=== PATIENT | female | born 1955 | race Caucasian/White ===

== ENCOUNTER 2016-11-22 16:08 | Inpatient (IN) | payer BC ==
[~2016-11-22] VITALS: Ht 170.2 cm; Wt 77.0 kg
[2016-11-22] MEDS ORDERED: SODIUM CHLORIDE 0.9% 1,000ML IVBOLUS ONE (17:00)
[2016-11-22] MEDS ORDERED: METOCLOPRAMIDE 5 MG/ML, 2ML IVPush ONE (17:00)
[2016-11-22] MEDS ORDERED: DIPHENHYDRAMINE 50 MG/ML, 1ML IVPush ONE (17:00)
[2016-11-22] MEDS ORDERED: KETOROLAC 30 MG/1 ML IVPush ONE (17:00)
[2016-11-22] MEDS ORDERED: ALBUTEROL/IPRATROPIUM 2.5MG/0.5MG, 3 ML NPPB ONE (17:00)
[2016-11-22 17:31] LABS: ASPARTATE AMINO TRANSFERASE 28 U/L (15-37); BLOOD UREA NITROGEN 17 mg/dL (7-18)
[2016-11-22] MEDS ORDERED: ALBUTEROL/IPRATROPIUM 2.5MG/0.5MG, 3 ML ONE ×2 (17:31→21:05)
[2016-11-22] MEDS ORDERED: KETOROLAC 30 MG/1 ML ONE (17:57)
[2016-11-22] MEDS ORDERED: METOCLOPRAMIDE 5 MG/ML, 2ML ONE (17:58)
[2016-11-22] MEDS ORDERED: DIPHENHYDRAMINE 50 MG/ML, 1ML ONE (17:58)
[2016-11-22] MEDS ORDERED: ALBU8.5H3 INH (18:08)
[2016-11-22] MEDS ORDERED: ASPI-650 PO (18:10)
[2016-11-22] MEDS ORDERED: MULT-6 PO (18:10)
[2016-11-22] MEDS ORDERED: FLUT100D INH (18:10)
[2016-11-22] MEDS ORDERED: AMOX1TAB64 PO (18:22)
[2016-11-22] MEDS ORDERED: ACETAMINOPHEN 325 MG TABLET ONE (18:24)
[2016-11-22] MEDS ORDERED: CEFTRIAXONE PMX 1GM/50ML 50 ML ONE (18:25)
[2016-11-22] MEDS ORDERED: AZITHROMYCIN 500 MG in SODIUM CHLORIDE 0.9% 250 ML IV ONE (18:30)
[2016-11-22] MEDS ORDERED: ACETAMINOPHEN 325 MG TABLET PO ONE (18:30)
[2016-11-22] MEDS ORDERED: CEFTRIAXONE 1,000 MG in SODIUM CHLORIDE 0.9% 50 ML IV ONE (18:30)
[2016-11-22] MEDS ORDERED: methylPREDNISolone SOD SUCC 125 MG/2 ML ONE (18:37)
[2016-11-22] MEDS ORDERED: methylPREDNISolone SOD SUCC 125 MG/2 ML IVPush ONE (19:00)
[2016-11-22] MEDS ORDERED: SODIUM CHLORIDE 0.9%, 500ML IVBOLUS ONE (19:30)
[2016-11-22] MEDS ORDERED: ONDANSETRON 2MG/ML, 2ML IVPush PRN (20:00)
[2016-11-22] MEDS ORDERED: ACETAMINOPHEN 325 MG TABLET PO PRN (20:00)
[2016-11-22] MEDS ORDERED: DOCUSATE 100 MG CAPSULE PO PRN (20:00)
[2016-11-22] MEDS ORDERED: PROMETHAZINE 25 MG/ML, 1ML IM PRN (20:00)
[2016-11-22] MEDS ORDERED: POLYETHYLENE GLYCOL 17 GM PACKET PO PRN (20:00)
[2016-11-22] MEDS ORDERED: HYDROcodone/APAP 5/325 TABLET PO PRN (20:00)
[2016-11-22] MEDS ORDERED: BISACODYL 10 MG SUPP PR PRN (20:00)
[2016-11-22 20:37] LABS: IS PT STATUS REG ER OR PRE ER? NO
[2016-11-22] MEDS: SODIUM CHLORIDE 0.9% 1,000 ML IV SCH (20:48)
[2016-11-22] MEDS ORDERED: ALBUTEROL/IPRATROPIUM 2.5MG/0.5MG, 3 ML NPPB PRN (21:30)
[2016-11-22] MEDS: DOXYCYCLINE 100 MG in DEXTROSE 5% 250 ML IV SCH (22:18)
[2016-11-22] MEDS: POTASSIUM CHLORIDE 20 MEQ TAB.ER.PRT PO SCH (22:19)
[2016-11-22] MEDS: ENOXAPARIN 40 MG/0.4 ML SQ SCH (22:19)
[2016-11-22 22:20] VITALS: BP 115/66
[2016-11-23 02:15] VITALS: BP 102/53
[2016-11-23] MEDS: methylPREDNISolone SOD SUCC 125 MG/2 ML IVPush SCH ×4 (02:24→20:47)
[2016-11-23 02:43] LABS: BLOOD UREA NITROGEN 19 mg/dL (7-18)
[2016-11-23 02:46] LABS: ASPARTATE AMINO TRANSFERASE 20 U/L (15-37)
[2016-11-23 02:48] LABS: IS PT STATUS REG ER OR PRE ER? NO
[2016-11-23] MEDS: SODIUM CHLORIDE 0.9% 1,000 ML IV SCH ×2 (04:33→10:16)
[2016-11-23] MEDS: ALBUTEROL/IPRATROPIUM 2.5MG/0.5MG, 3 ML NPPB SCH ×4 (06:56→20:00)
[2016-11-23 07:24] VITALS: BP 120/68
[2016-11-23 08:07] LABS: IS PT STATUS REG ER OR PRE ER? NO
[2016-11-23] MEDS: POTASSIUM CHLORIDE 20 MEQ TAB.ER.PRT PO SCH ×2 (08:19→15:34)
[2016-11-23] MEDS: DOXYCYCLINE 100 MG in DEXTROSE 5% 250 ML IV SCH ×2 (10:10→20:55)
[2016-11-23] MEDS: GUAIFENESIN/DM 200-20MG, 10ML UDC PO PRN (10:16)
[2016-11-23 14:10] VITALS: BP 118/74
[2016-11-23] MEDS ORDERED: CEFTRIAXONE PMX 1GM/50ML 50 ML IV SCH (18:30)
[2016-11-23 19:18] VITALS: BP 114/64
[2016-11-23] MEDS ORDERED: SODIUM CHLORIDE 0.9% 1,000 ML IV SCH (19:55)
[2016-11-23] MEDS: ENOXAPARIN 40 MG/0.4 ML SQ SCH (20:47)
[2016-11-24 01:09] VITALS: BP 122/67
[2016-11-24] MEDS: methylPREDNISolone SOD SUCC 125 MG/2 ML IVPush SCH ×2 (03:33→08:56)
[2016-11-24] MEDS: GUAIFENESIN/DM 200-20MG, 10ML UDC PO PRN (03:39)
[2016-11-24 05:42] LABS: BLOOD UREA NITROGEN 11 mg/dL (7-18)
[2016-11-24] MEDS: ALBUTEROL/IPRATROPIUM 2.5MG/0.5MG, 3 ML NPPB SCH (06:58)
[2016-11-24 07:23] VITALS: BP 145/69
[2016-11-24] MEDS ORDERED: CEFD300C37 PO (08:47)
[2016-11-24] MEDS ORDERED: IPRA3AMP NPPB (08:47)
[2016-11-24] MEDS ORDERED: DOXY100T PO (08:47)
[2016-11-24] MEDS ORDERED: PRED10TA PO (08:47)
== END 2016-11-24 11:20 | disposition home or self-care (01) | DRG 871 ==
LOC: ED 17:11 → EDIP 18:44 → 4WST 20:18 → DCLOUNGE 11-24 10:28
PROVIDERS: ADMIT Internal Medicine; ATTEND Internal Medicine
DX: A41.9 Sepsis, unspecified organism (principal); J96.01 Acute respiratory failure with hypoxia; J18.9 Pneumonia, unspecified organism; J45.41 Moderate persistent asthma with (acute) exacerbation; N39.0 Urinary tract infection, site not specified; E87.6 Hypokalemia; Z85.038 Personal history of other malignant neoplasm of large intestine; Z92.3 Personal history of irradiation; Z90.49 Acquired absence of other specified parts of digestive tract; Z79.82 Long term (current) use of aspirin; Z87.891 Personal history of nicotine dependence
CPT/HCPCS: 36415; 71020; 80048; 80053; 81001; 83605; 83735; 84145; 84484; 85014; 85018; 85025; 87040; 87070; 87086; 87205; 87324; 93005; 93306; 94640; 96365; 96375; J0456; J0696; J1650; J1885; J7060; J7620; J1200; J2765; J2930; J7030; J7040; J7050

== ENCOUNTER → 2017-02-23 | Outpatient (CLI) | payer BC ==
[~2017-02-23] MED LIST: ALBU8.5H8 INH; AMOX1TAB64 PO; ASPI-650 PO; CEFD300C37 PO; DOXY100T PO; FLUT100D INH; IPRA3AMP NPPB; MULT-6 PO; PRED10TA PO
== END | disposition home or self-care (01) ==
LOC: CFH 09:07
PROVIDERS: ATTEND Internal Medicine
DX: Z12.31 Encounter for screening mammogram for malignant neoplasm of breast (principal)
CPT/HCPCS: 77063; G0202